=== PATIENT | male | born 1990 | race Two or more races ===

== ENCOUNTER 2018-12-29 20:22 | Emergency (ER) | payer SELFPAY ==
[~2018-12-29] VITALS: Ht 185.4 cm; Wt 93.0 kg
--- NOTE | 2018-12-29 20:55 | NUR ---
ED Nurse Note: Recieved pt from home, here with c/o sore throat for past week with intermittent fevers, denies nausea, vomiting or pain radiating, pt is ambulatory, denies any other discomforts or complaints.
[2018-12-29 21:00] VITALS: BP 112/66
[2018-12-29] MEDS ORDERED: IBUPROFEN600 MG ORAL (21:04)
[2018-12-29] MEDS ORDERED: ZITHROMAX250 MG ORAL (21:04)
--- NOTE | 2018-12-29 21:04 | Emergency Room Report ---
History of Present Illness General Chief Complaint: General Complaint Source: Patient Present Illness HPI This is 28-year-old male with no past medical history. He presents with complaint of fever and sore throat. Onset yesterday. He has generalized body pain. Fever was high. Better after he took some [id number] medication. No nausea no vomiting. No cough or congestion. Pain is 8 out of 10. Worse with swallowing. No drooling. Allergies: Coded Allergies: No Known Allergies (Unverified , 12/29/18) Patient History Past Medical History: see triage record, old chart reviewed Past Surgical History: none Pertinent Family History: none Social History: Denies: smoking Immunizations: other Reviewed Nursing Documentation: PMH: Agreed; PSxH: Agreed Nursing Documentation-PMH Past Medical History: No Stated History Review of Systems Constitutional: Reports: fever Eye: Denies: eye pain, blurred vision ENT: Reports: throat pain; Denies: ear pain, nose congestion, throat swelling Respiratory: Denies: cough, shortness of breath Cardiovascular: Denies: chest pain, palpitations Gastrointestinal: Denies: abdominal pain, diarrhea, nausea, vomiting Musculoskeletal: Denies: back pain, joint pain Skin: Denies: rash Neurological: Denies: headache, numbness Endocrine: Denies: increased thirst, increased urine Hematologic/Lymphatic: Denies: easy bruising All Other Systems: negative except mentioned in HPI Physical Exam Vital Signs Date Time Temp Pulse Resp B/P (MAP) Pulse Ox O2 Delivery O2 Flow Rate FiO2 12/29/18 20:42 100.2 105 24 112/66 (81) 95 Room Air Vitals with fever Sp02 EP Interpretation: reviewed, normal General Appearance: well appearing, no apparent distress, alert Head: normocephalic, atraumatic Eyes: bilateral eye PERRL, bilateral eye EOMI ENT: hearing grossly normal, tonsillar swelling, pharyngeal erythema, tonsillar exudate Neck: full range of motion, supple, no meningismus Respiratory: chest non-tender, lungs clear, normal breath sounds Cardiovascular #1: regular rate, rhythm, no murmur Gastrointestinal: normal bowel sounds, non tender, no mass, no organomegaly, no bruit, non-distended Musculoskeletal: back normal, gait/station normal, normal range of motion Psychiatric: mood/affect normal Medical Decision Making Diagnostic Impression: Primary Impression: Acute tonsillitis Qualified Codes: J03.90 - Acute tonsillitis, unspecified ER Course Patient with acute tonsillitis. Most likely strep. No evidence of peritonsillar abscess or Biju angina. No evidence of retropharyngeal abscess. Patient looks well. Will discharge home. Last Vital Signs Date Time Temp Pulse Resp B/P (MAP) Pulse Ox O2 Delivery O2 Flow Rate FiO2 12/29/18 20:42 100.2 105 24 112/66 (81) 95 Room Air Status: improved Disposition: HOME, SELF-CARE Condition: Stable Scripts Azithromycin* (ZITHROMAX*) 250 Mg Tablet 250 MG ORAL DAILY, #6 TAB 0 Refills Take two tables once daily for 1 day, then one tablet once daily for 4 days. Prov: David Zhang MD 12/29/18 Ibuprofen* (MOTRIN*) 600 Mg Tablet 600 MG ORAL THREE TIMES A DAY, #30 TAB 0 Refills Prov: David Zhnag MD 12/29/18 Additional Instructions: Follow-up with your doctor in 7 days. Increase fluids. Return if symptoms worsen. David Zhang MD Dec 29, 2018 21:04
[2018-12-29 21:10] VITALS: BP 112/66
--- NOTE | 2018-12-29 21:10 | NUR ---
ER DISCHARGE NOTE: Patient is cleared to be discharged per ERMD, pt is aox4, on room air, with stable vital signs. pt was given dc and prescription instructions, pt was able to verbalize understanding, pt id band removed without complications. pt is able to ambulate with steady gait. pt took all belongings.
== END 2018-12-29 21:15 | disposition home or self-care (01) ==
LOC: EMR 21:14
DX: J03.90 Acute tonsillitis, unspecified (principal)
CPT/HCPCS: 99282; J7512